=== PATIENT | female | born 1960 | race Caucasian/White ===

== ENCOUNTER 2016-11-21 22:46 | Emergency (ER) | payer BC ==
[~2016-11-21 22:46] MED LIST: ASPIR 8181 MG PO; LISINOPRIL10 MG PO; SYNTHROID DP0.125 MG PO; XANAX0.25 MG PO
--- NOTE | 2016-11-22 19:49 | ER ---
ADMIT: 11/21/2016 RM/LOC: [facility] MR#: [id number] [address] [id number] NINOSKA BARBER [address] [place] [address] Emergency Room Report SEX: F AGE: 56 : 1960 DATE: 11/21/2016 TIME: 2245 Please refer to my T-sheet for complete H and P. HISTORY OF PRESENT ILLNESS: Briefly, the patient is a 56-year-old, comes in with chest pain, kind of substernal, goes to her back a little bit, rates it 02/26, states that she has had heart problems in the past. She is diabetic, hypertension. She states she took a full aspirin before she came in. She had a cardiac cath within the last year that showed no significant blockage, that was up in [place]. She has been seen a couple of times for chest pain since then. PHYSICAL EXAMINATION: VITAL SIGNS: Blood pressure 156/80, pulse 79, respirations 16, temp 98.9, saturating 100%. GENERAL: No acute distress. HEENT: Grossly normal. LUNGS: Clear. HEART: Regular. ABDOMEN: Soft. SKIN: No rash. NEUROLOGIC: Alert and oriented, nonfocal. EMERGENCY DEPARTMENT COURSE: We did cardiac routine and I gave her Ativan 0.5 IV, her pain was improved. She was more comfortable after treatment here. Her CBC normal except hemoglobin 10.6. Chemistries normal except potassium 3.6, glucose 118. Her CK was 242, CK-MB 3.9, but troponin was negative. EKG was sinus rhythm, rate 83, no changes. I had a long discussion with her. I looked up her old record and then talked to Dr. Callejas, he was aware, he would ADMIT: 11/21/2016 RM/LOC: ER [facility] MR#: [id number] [facility] [address] [place], [place] [id number] NINOSKA BARBER [address] [place] [address] Emergency Room Report SEX: F AGE: 56 : 1960 relay the message to Dr. Enrique that we are going to let her go home and keep her appointment on Tuesday. The patient and family were comfortable with this, I told them to come back if any problems. ASSESSMENT: 1. Atypical chest pain. 2. Increased CK with normal troponin and of note, patient with a known cardiac cath within the year that showed no significant blockages and had similar episodes in the past. PLAN: Continue aspirin a day. Continue medications. Follow up with Klaus on Tuesday. Return if worse. Ronnie Mosquera MD/ destiney JOB #: [id number] CC: Leoncio Quintero MD, Attending Physician Cayden Enrique MD, Family Physician
== END 2016-11-22 00:20 | disposition home or self-care (01) ==
LOC: ER 22:46
DX: R07.89 Other chest pain (principal); R74.8 Abnormal levels of other serum enzymes; E11.9 Type 2 diabetes mellitus without complications; I10 Essential (primary) hypertension; Z79.82 Long term (current) use of aspirin; Z79.899 Other long term (current) drug therapy

== ENCOUNTER → 2016-11-24 | Outpatient (CLI) | payer BC | END | disposition home or self-care (01) | LOC: CARD 09:20 | DX: R00.2 Palpitations (principal); I25.10 Atherosclerotic heart disease of native coronary artery without angina pectoris ==